=== PATIENT | female | born 1950 | race Caucasian/White ===

== ENCOUNTER → 2016-09-20 | Day surgery (SDC) | payer MEDICARE, BC ==
[~2016-09-20] MED LIST: Dextrose 5%-0.45% NaCl 1,000 ML IV SCH; Midazolam 1 MG/ML 2 ML SDV IV ONE; Midazolam 1 MG/ML 2 ML SDV ONE; Sodium Chloride 0.9% 10 ML Syringe FLUSH PRN; fentaNYL 100 MCG/2 ML SDV IV ONE; fentaNYL 100 MCG/2 ML SDV ONE
[2016-09-20 09:43] VITALS: BP 118/69
--- NOTE | 2016-09-20 12:52 | OR ---
DATE: 09/20/2016 PROCEDURE: Total colonoscopy. INSTRUMENT USED: [id number]-H180AL Olympus video colonoscope. PREMEDICATIONS: Fentanyl 125 mcg intravenous. Versed 4 mg intravenous. Nasal O2 cannula. The procedure was done under pulse oximetry, BP recording, and front desk monitor. INDICATION: The patient with recent alteration in bowel habits. Colonoscopic examination is done for detection of any polypoid lesions and removal, endoscopic hemostasis therapy if needed. DESCRIPTION OF PROCEDURE: Initial rectal exam was unremarkable. Rigid anoscopy was normal. The colonoscope was passed with ease. Numerous scattered diverticula were noted in the colon more so in the distal left colon along with deformity. The scope was passed with relative ease up to the ileocecal area, photographs taken of the normal-appearing cecum, identified by double-bulged ileocecal folds. No bleeding was noted from any of the visualized areas at the commencement of the examination. No stricture. No vascular ectasia. No large isolated ulcerations seen. No evidence of diffuse inflammatory bowel disease in the form of friability, contact bleeding, or ulcerations. No polyp or tumor mass identified. There was some amount of solid fecal material that had to be aspirated. Probing the proximal sides of folds and flexures, using adequate distention and clearing up the stool material, withdrawal of the scope was made, cecum to rectum time over 6 minutes. No bleeding was noted from any of the visualized areas at the completion of examination. IMPRESSION: Diverticulosis. The patient tolerated the procedure well. [facility] /[id number]
== END | disposition home or self-care (01) ==
LOC: DL.ENDO 05:45
PROVIDERS: ATTEND Internal Medicine Gastroenterology
DX: K57.30 Diverticulosis of large intestine without perforation or abscess without bleeding (principal); F41.9 Anxiety disorder, unspecified; F32.9 Major depressive disorder, single episode, unspecified; E78.00 Pure hypercholesterolemia, unspecified; Z87.891 Personal history of nicotine dependence; Z90.710 Acquired absence of both cervix and uterus; Z79.82 Long term (current) use of aspirin; Z79.899 Other long term (current) drug therapy; Z90.49 Acquired absence of other specified parts of digestive tract
CPT/HCPCS: 45378; J2250; J3010; J7042

== ENCOUNTER 2022-11-23 16:07 | Emergency (ER) | payer MEDICARE, BC ==
[2022-11-23] MEDS ORDERED: Aluminum Hydroxide/Magnesium Hydroxide/Simethicone Susp 30 ML Cup PO ONE (16:28)
[2022-11-23] MEDS ORDERED: Sodium Chloride 0.9% 10 ML Syringe FLUSH PRN (17:07)
[2022-11-23] MEDS ORDERED: Iopamidol 612 MG/ML 100 ML Bottle IVPUSH ONE (17:09)
[2022-11-23 17:25] LABS: BASOPHILS PERCENT AUTO 0.3 % (0.0-1.0); EOSINOPHILS PERCENT AUTO 2.6 % (1.0-3.0); HEMATOCRIT 43.1 % (37.0-47.0); HEMOGLOBIN 14.5 g/dL (12.0-16.0); LYMPHOCYTES PERCENT AUTO 17.7 % (20.5-50.1); MEAN CORPUSCULAR HEMOGLOBIN 31.3 pg (27.0-34.0); MEAN CORPUSCULAR HGB CONC 33.6 g/dL (33.0-35.0); MEAN CORPUSCULAR VOLUME 93.1 fL (80-100); NEUTROPHILS PERCENT AUTO 67.4 % (42.2-75.2); PLATELET COUNT,PLT 237 10^3/uL (150-450); RED BLOOD CELL COUNT 4.63 10^6/uL (4.2-5.4); WHITE BLOOD CELL COUNT,WBC 8.9 10^3/uL (5.0-10.0)
[2022-11-23 17:40] LABS: APPEARANCE,URINE CLEAR (CLEAR); BILIRUBIN,URINE SMALL (NEGATIVE); COLOR,URINE YELLOW (YELLOW); GLUCOSE,URINE NEGATIVE (NEGATIVE); KETONES,URINE >=160 (NEGATIVE); LEUKOCYTE ESTERASE,URINE NEGATIVE (NEGATIVE); NITRITE,URINE NEGATIVE (NEGATIVE); OCCULT BLOOD,URINE TRACE-INTACT (NEGATIVE); PH,URINE 5.5 (5.0-9.0); PROTEIN,URINE 100 (NEGATIVE); UROBILINOGEN,URINE 0.2 mg/dL (0.2-1.0)
[2022-11-23 17:45] LABS: A/G RATIO 0.9; ALBUMIN 3.5 g/dL (3.4-5.0); ANION GAP 14.3 mEq/L (7-13); BILIRUBIN TOTAL 0.6 mg/dL (0.2-1.0); BUN/CREATININE RATIO 12.1 (No establ ref range); CALCIUM 9.5 mg/dL (8.5-10.1); CREATININE 0.66 mg/dL (0.55-1.02); EST CRCL DRUG DOSING (CG) 57.08 mL/min; POTASSIUM,K 4.3 mmol/L (3.5-5.1); PROTEIN TOTAL,TP 7.5 g/dL (6.4-8.2)
[2022-11-23 17:49] LABS: AMORPHOUS SEDIMENT,URINE FEW /HPF (NOT SEEN); BACTERIA,URINE FEW /HPF (0-FEW/HPF); EPITHELIAL CELLS,URINE FEW /HPF (NOT SEEN); MUCUS,URINE MANY /LPF (NOT SEEN); RBC,URINE 0-5 /HPF (0-5); WBC,URINE 0-5 /HPF (0-5/HPF)
[2022-11-23] MEDS ORDERED: Azithromycin 500 MG in Sodium Chloride 0.9% 250 ML IV ONE (19:26)
[2022-11-23] MEDS ORDERED: methylPREDNISolone Sodium Succinate 125 MG/2 ML SDV IVPUSH ONE (19:26)
[2022-11-23] MEDS ORDERED: Albuterol/Ipratropium 3.0-0.5 MG/3 ML Neb Soln NEB ONE (19:26)
[2022-11-24 00:23] VITALS: BP 121/84; PULSE 96
== END 2022-11-23 22:37 | disposition home or self-care (01) ==
LOC: DL.ED 16:07
DX: E04.1 Nontoxic single thyroid nodule (principal); K44.9 Diaphragmatic hernia without obstruction or gangrene; N28.1 Cyst of kidney, acquired; R91.1 Solitary pulmonary nodule; J44.0 Chronic obstructive pulmonary disease with (acute) lower respiratory infection; J20.9 Acute bronchitis, unspecified; K76.89 Other specified diseases of liver; E78.00 Pure hypercholesterolemia, unspecified; Z87.891 Personal history of nicotine dependence; Z79.82 Long term (current) use of aspirin; Z79.899 Other long term (current) drug therapy
CPT/HCPCS: 36415; 71260; 80053; 81001; 85025; 96365; 96375; 99285; 99285-25; A9270-GY; J0456; J2930; J3490; J7050; J7620-GY; Q9967

== ENCOUNTER 2022-12-12 17:37 | Emergency (ER) | payer MEDICARE, BC ==
[2022-12-12] MEDS ORDERED: Sodium Chloride 0.9% 10 ML Syringe FLUSH PRN ×2 (18:17→18:31)
[2022-12-12 19:21] LABS: APPEARANCE,URINE CLEAR (CLEAR); BILIRUBIN,URINE NEGATIVE (NEGATIVE); COLOR,URINE YELLOW (YELLOW); GLUCOSE,URINE NEGATIVE (NEGATIVE); KETONES,URINE NEGATIVE (NEGATIVE); LEUKOCYTE ESTERASE,URINE NEGATIVE (NEGATIVE); NITRITE,URINE NEGATIVE (NEGATIVE); OCCULT BLOOD,URINE NEGATIVE (NEGATIVE); PH,URINE 6.5 (5.0-9.0); PROTEIN,URINE NEGATIVE (NEGATIVE); UROBILINOGEN,URINE 0.2 mg/dL (0.2-1.0)
[2022-12-12 19:34] LABS: A/G RATIO 1.1; ALBUMIN 3.7 g/dL (3.4-5.0); ANION GAP 13.5 mEq/L (7-13); BILIRUBIN TOTAL 0.5 mg/dL (0.2-1.0); BUN/CREATININE RATIO 22.2 (No establ ref range); CALCIUM 9.7 mg/dL (8.5-10.1); CREATININE 0.54 mg/dL (0.55-1.02); EST CRCL DRUG DOSING (CG) 67.94 mL/min; MAGNESIUM 2.3 mg/dL (1.8-2.4); POTASSIUM,K 4.5 mmol/L (3.5-5.1); PROTEIN TOTAL,TP 7.1 g/dL (6.4-8.2); TSH ULTRASENSITIVE 1.18 uIU/mL (0.36-3.74)
[2022-12-12] MEDS ORDERED: Diazepam 5 MG Tab PO ONE (20:15)
[2022-12-12 20:31] VITALS: BP 108/87; PULSE 78
== END 2022-12-12 20:28 | disposition home or self-care (01) ==
LOC: DL.ED 17:37
DX: F41.9 Anxiety disorder, unspecified (principal); K22.4 Dyskinesia of esophagus; E78.00 Pure hypercholesterolemia, unspecified; Z87.891 Personal history of nicotine dependence; Z79.82 Long term (current) use of aspirin; Z79.899 Other long term (current) drug therapy
CPT/HCPCS: 36415; 80053; 81003; 82607; 83735; 84425; 84443; 96374; 99283; 99283-25; A9270-GY; J3360; J3490

== ENCOUNTER 2024-08-17 14:36 | Emergency (ER) | payer MEDICARE, BC ==
[2024-08-17 14:49] VITALS: BP 147/90; PULSE 103
== END 2024-08-17 15:02 | disposition home or self-care (01) ==
LOC: DL.ED 14:36
DX: J06.9 Acute upper respiratory infection, unspecified (principal); R19.7 Diarrhea, unspecified; I10 Essential (primary) hypertension; E78.00 Pure hypercholesterolemia, unspecified; J44.89 Other specified chronic obstructive pulmonary disease; Z79.899 Other long term (current) drug therapy; Z79.82 Long term (current) use of aspirin; Z79.51 Long term (current) use of inhaled steroids; Z79.811 Long term (current) use of aromatase inhibitors; Z90.49 Acquired absence of other specified parts of digestive tract; Z90.710 Acquired absence of both cervix and uterus
CPT/HCPCS: 99283